=== PATIENT | female | born 1995 | race Caucasian/White ===

== ENCOUNTER 2017-01-04 15:00 | Emergency (ER) | payer OTHER ==
[~2017-01-04] VITALS: Ht 152.4 cm; Wt 65.1 kg
[~2017-01-04 15:00] MED LIST: IBUP-1222 PO; OXYC-302 PO
[2017-01-04 15:50] LABS: BLOOD UREA NITROGEN 7 mg/dL (7-18)
[2017-01-04 16:04] LABS: PATH.CAST-FLAG NOT PRESENT; SPERM-FLAG NOT PRESENT; SRC-FLAG NOT PRESENT; XTAL-FLAG NOT PRESENT; YLC-FLAG NOT PRESENT
[2017-01-04] MEDS ORDERED: NITR100C PO (16:10)
[2017-01-04] MEDS ORDERED: FLUC150T2 PO (16:10)
[2017-01-04] MEDS ORDERED: ALPR0.25 PO (16:10)
[2017-01-04 17:04] VITALS: BP 95/68
[2017-01-04] MEDS ORDERED: CEFTRIAXONE 250 MG ONE (17:22)
[2017-01-04] MEDS ORDERED: AZITHROMYCIN 250 MG TABLET ONE (17:22)
[2017-01-04] MEDS ORDERED: LIDOCAINE 1%, 20ML ONE (17:23)
[2017-01-04] MEDS ORDERED: CEFTRIAXONE 250 MG IM ONE (18:00)
[2017-01-04] MEDS ORDERED: AZITHROMYCIN 500 MG TABLET PO ONE (18:00)
== END 2017-01-04 17:59 | disposition home or self-care (01) ==
LOC: ED 17:32
DX: R10.32 Left lower quadrant pain (principal)
CPT/HCPCS: 36415; 76830; 80048; 81001; 82040; 84703; 85025; 87210; 87491; 87591; 87808; 96372; 99285; J0696